=== PATIENT | male | born 1960 | race Caucasian/White ===

== ENCOUNTER 2023-06-04 13:21 | Outpatient (CLI) | payer OTHER, SELFPAY ==
[2023-06-04 13:32] VITALS: PULSE 63; RESP 18; O2SAT 98
[2023-06-04 13:37] VITALS: PULSE 63
[2023-06-04] MEDS: albuterol 2.5 mg/3 mL Neb INHALATION (13:39)
== END 2023-06-04 13:22 | disposition home or self-care (01) ==
PROVIDERS: Visit Provider Chiropractor
DX: J45.909 Unspecified asthma, uncomplicated (principal); R94.2 Abnormal results of pulmonary function studies
CPT/HCPCS: 94060; J7613